=== PATIENT | female | born 1985 | race Caucasian/White ===

== ENCOUNTER → 2020-11-22 16:21 | Outpatient (CLI) | payer OTHER, SELFPAY ==
[2020-11-22] MEDS: COVID-19 VACC, Ad26(JANSSEN)/PF 0.5 ML IM (16:31)
== END ==
PROVIDERS: PCP Registered Nurse; Visit Provider Internal Medicine
DX: Z23 Encounter for immunization (principal)
CPT/HCPCS: 0031A; 91303

== ENCOUNTER → 2024-01-03 17:27 | Outpatient (CLI) | payer OTHER, SELFPAY ==
[2024-01-03 18:26] LABS: Add Manual Diff / Slide Review NO; Basophils Absolute Auto 100 /uL (0-100); Basophils Percent Auto 0.9 % (0-2); Eosinophils Absolute Auto 300 /uL (0-450); Eosinophils Percent Auto 3.2 % (2-4); Hematocrit 40.4 % (36-46); Hemoglobin 13.8 g/dL (12.0-16.0); Lymphocytes Absolute Auto 3200 /uL (1100-4500); Lymphocytes Percent Auto 40.8 % (25-40); Mean Corpuscular HGB Conc 34.1 % (30-36); Mean Corpuscular Hemoglobin 30.1 PG (26-34); Mean Corpuscular Volume 88.2 fL (80-100); Monocytes Absolute Auto 500 /uL (0-900); Monocytes Percent Auto 6.6 % (3-14); Neutrophils Absolute Auto 3900 /uL (1500-7000); Neutrophils Percent Auto 48.5 % (50-75); Platelet Count 239 X10^3/uL (150-400); Red Blood Cell Count 4.58 X10^6/uL (4.0-5.2); Red Cell Distribution Width 12.2 % (11.6-14.8)
[2024-01-03 18:30] LABS: Hemoglobin A1C% w Est Avg Glu 5.4 % (4.0-6.0)
[2024-01-03 18:50] LABS: Prolactin 11.4 ng/mL (3.0-18.6)
[2024-01-03 19:05] LABS: TSH w/ Reflex to FT4 1.08 uIU/mL (0.47-4.68)
[2024-01-03 19:06] LABS: Estradiol, Total 70.9 pg/mL
[2024-01-03 19:40] LABS: Folate > 20.0 ng/mL (2.76-20.0); Vitamin B12 440 pg/mL (239-931)
== END ==
PROVIDERS: PCP Student in an Organized Health Care Education/Training Program; Referring Provider Family Medicine; Visit Provider Family Medicine
DX: L68.0 Hirsutism (principal); L65.9 Nonscarring hair loss, unspecified; R73.03 Prediabetes; R20.9 Unspecified disturbances of skin sensation; Z78.9 Other specified health status
CPT/HCPCS: 36415; 82607; 82670; 82746; 83036; 84146; 84402; 84443; 85025

== ENCOUNTER → 2024-06-18 14:08 | Outpatient (CLI) | payer OTHER, SELFPAY | PROVIDERS: PCP Student in an Organized Health Care Education/Training Program; Visit Provider Nurse Practitioner Family | DX: R30.0 Dysuria (principal); N94.89 Other specified conditions associated with female genital organs and menstrual cycle | CPT/HCPCS: 87077; 87086; 87186; 87210 ==

== ENCOUNTER → 2024-08-26 12:08 | Outpatient (CLI) | payer OTHER, SELFPAY | PROVIDERS: PCP Student in an Organized Health Care Education/Training Program; Visit Provider Physician Assistant Medical | DX: N94.89 Other specified conditions associated with female genital organs and menstrual cycle (principal) | CPT/HCPCS: 87210 ==

== ENCOUNTER → 2024-10-30 13:32 | Outpatient (CLI) | payer OTHER, SELFPAY ==
[2024-10-30 16:32] LABS: Hepatitis B Surface Antigen NEGATIVE s/c (NEGATIVE)
[2024-10-30 16:45] LABS: HIV 1 & 2 Ab/Ag 4th Gen Combo NEGATIVE (NEGATIVE); Hep C Virus Ab w/Reflex Quant NEGATIVE s/c (NEGATIVE)
[2024-10-30 17:24] LABS: Urine N gonorrhoeae NOT DETECTED
[2024-10-30 17:32] LABS: Urine Chlamydia NOT DETECTED
[2024-10-31 03:08] LABS: RPR Screen Non Reactive (Non Reactive)
== END ==
LOC: LAB 13:32
PROVIDERS: PCP Student in an Organized Health Care Education/Training Program; Referring Provider Student in an Organized Health Care Education/Training Program; Visit Provider Student in an Organized Health Care Education/Training Program
DX: B37.32 Chronic candidiasis of vulva and vagina (principal)
CPT/HCPCS: 36415; 86592; 86695; 86696; 86803; 87340; 87389; 87491; 87591

== ENCOUNTER → 2024-11-05 13:00 | Outpatient (CLI) | payer OTHER, SELFPAY ==
--- NOTE | 2024-11-05 13:01 | DI.US.S_ITS ---
PROCEDURE: US PELVIC COMPLETE INDICATIONS: Chronic BV TECHNIQUE: Real-time scanning was performed of the pelvic organs, with image documentation. Additional endovaginal scanning was necessary due to incomplete visualization of the adnexal and endometrial structures by transabdominal scanning. COMPARISON: None. FINDINGS: Uterus: Uterus is anteverted and normal in size at 7.9 x 4.2 x 4.7 cm. The myometrium is mildly heterogeneous, with a globular appearance of the junctional zone and questionable punctate hyperechoic foci present. The endometrium measures 6.5 mm combined thickness. IUD appears appropriately positioned within the endometrium. Ovaries: The right ovary measures 3.5 x 2.6 x 2.9 cm, with a calculated ovarian volume of 13.6 cc. The left ovary measures 2.8 x 1.2 x 2.4 cm, with a calculated ovarian volume of 4.2 cc. The ovaries have a normal sonographic appearance. Less than 12 follicles can be seen in each ovary. No adnexal masses are seen. Hypoechoic follicle with internal echogenic foci measuring 2.4 x 2.0 x 2.2 cm. Other: No pathologic free abdominal or pelvic fluid. IMPRESSION: Suspected diffuse adenomyosis. Complex right ovarian follicle measuring 2.4 x 2.0 x 2.2 cm. Differential includes hemorrhagic corpus luteum or endometrioma. Consider follow-up in 6-12 weeks with ultrasound. We strive to produce accurate, complete, and clear reports of imaging services. To assist us in improving patient care, this report was composed using standard report templates and voice recognition software. Therefore, it may contain abnormal punctuation, insertions and/or omissions. Occasional wrong-word or sound-alike substitutions may occur. Though we review the report and make efforts to correct it, we do recommend that the report be read carefully in proper context to recognize any text inaccuracies. Dictated by: Wisam Carvajal M.D. on 11/05/2024 at 18:20 Approved by: Wisam Carvajal M.D. on 11/05/2024 at 18:23
== END ==
PROVIDERS: PCP Student in an Organized Health Care Education/Training Program; Referring Provider Student in an Organized Health Care Education/Training Program; Visit Provider Student in an Organized Health Care Education/Training Program
DX: B37.32 Chronic candidiasis of vulva and vagina (principal)
CPT/HCPCS: 76830; 76856